=== PATIENT | male | born 1945 | race Caucasian/White ===

== ENCOUNTER 2023-11-09 14:45 | Emergency (ER) | payer MEDICARE, OTHER ==
[2023-11-09 15:04] LABS: #Basophils 0.1 thou/uL (0.0-0.2); #Lymphocytes 0.5 thou/uL (1.20-3.40); #Monocytes 0.4 thou/uL (0.11-0.59); #Neutrophils 2.1 thou/uL (1.40-6.50); %Basophils 2.2 % (0.0-1.0); %Eosinophils 1.6 % (0.0-10.0); %Lymphocytes 15.7 % (21.0-51.0); %Monocytes 11.7 % (0.0-10.0); %Neutrophils 68.8 % (42.0-75.0); Hematocrit 35.6 % (42.0-52.0); Hemoglobin 11.7 g/dL (14.0-18.0); Mean Corpuscular Hemoglobin 27.9 pg (27.0-31.0); Mean Corpuscular Volume 84.7 fl (78.0-98.0); Mean Platelet Volume 6.4 fL (7.4-10.4); Platelet Count 175 10x3/uL (130-400)
[2023-11-09] MEDS ORDERED: Boostrix 0.5 ML (Tdap) VIAL (>/=7 yrs of age) ONE (15:10)
[2023-11-09 15:17] LABS: ALT (SGPT) 19 U/L (8-55); AST (SGOT) 28 U/L (5-34); Albumin 3.5 g/dL (3.4-4.8); Alkaline Phosphatase 82 U/L (40-110); Anion Gap 15 mmol/L (10-20); BUN (Urea Nitrogen) 20 mg/dL (8.4-25.7); Bilirubin, Total 0.2 mg/dL (0.2-1.2); Calc. Creatinine Clearance 0 mL/min (70-130); Calcium 8.6 mg/dL (7.8-10.44); Carbon Dioxide 25 mmol/L (23-31); Chloride 103 mmol/L (98-107); Estimated GFR 88; Glucose 126 mg/dL (83-110); Potassium 3.7 mmol/L (3.5-5.1); Protein, Total 6.5 g/dL (5.8-8.1); Sodium 139 mmol/L (136-145)
[2023-11-09] MEDS ORDERED: CEFAZOLIN 2 GM VIAL ONE (15:28)
[2023-11-09] MEDS ORDERED: Sodium Chloride 0.9% 100 ML ONE (15:28)
[2023-11-09] MEDS ORDERED: Acetaminophen/Codeine 30-300mg Tablet ONE (15:52)
== END 2023-11-09 18:45 | disposition short-term general hospital (02) ==
LOC: BURERS 14:45
DX: S62.301B Unspecified fracture of second metacarpal bone, left hand, initial encounter for open fracture (principal); S62.303B Unspecified fracture of third metacarpal bone, left hand, initial encounter for open fracture; W31.2XXA Contact with powered woodworking and forming machines, initial encounter; Z23 Encounter for immunization
CPT/HCPCS: 36415; 71045; 80053; 84484; 85025; 90471; 90715; 93005; 96374